=== PATIENT | male | born 1935 | race Caucasian/White ===

== ENCOUNTER 2016-12-08 16:53 | Emergency (ER) | payer MEDICARE, BC | END 2016-12-08 17:40 | disposition left against medical advice (07) | LOC: JP.ED 16:53 | DX: Z53.21 Procedure and treatment not carried out due to patient leaving prior to being seen by health care provider (principal) | CPT/HCPCS: 99281 ==

== ENCOUNTER 2018-11-11 07:30 | Day surgery (SDC) | payer MEDICARE, BC ==
[2018-11-11] MEDS ORDERED: Sodium Chloride 0.9% 10 ML Syringe FLUSH PRN (08:00)
[2018-11-11 09:37] VITALS: BP 148/66; PULSE 86
--- NOTE | 2018-11-11 11:58 | OR ---
DATE OF PROCEDURE: 11/11/2018 POSTOPERATIVE CARE: Postoperative care will be provided mainly at the [address] [place] [address] [facility] in conjunction with [facility]. PREOPERATIVE DIAGNOSIS: Cataract, right eye. POSTOPERATIVE DIAGNOSIS: Cataract, right eye. PROCEDURE: Phacoemulsification with intraocular lens placement, right eye. ANESTHESIA: Topical and intracameral. ESTIMATED BLOOD LOSS: Minimal. COMPLICATIONS: None. PATHOLOGY SPECIMENS: None. SURGICAL FINDINGS: None. INDICATION FOR PROCEDURE: The patient is an 83-year-old male with history of a visually significant cataract in the right eye, which interfered with activities of daily living. This consisted of a nuclear sclerosis cataract. Following careful discussion of the risks, benefits and alternatives to cataract extraction with intraocular lens placement including blindness and , the patient elected to proceed, and informed, written consent was obtained prior to the procedure. DESCRIPTION OF THE PROCEDURE: The patient was previously identified, and a payal placed above the right eye. All sources, including the patient, indicated that the right eye was the correct eye. The patient was subsequently taken to the operating room where standard monitors were applied. The patient was then prepped and draped in the usual sterile fashion for ophthalmic surgery. Attention was first directed at the 12 o'clock position where a paracentesis port was fashioned. Shugar solution followed by Viscoat was instilled into the eye. Attention was then directed to the 8:30 position where a triplanar incision was made in a near-clear manner using a keratome. A continuous capsulorrhexis was then made using a combination of the cystotome and Utrata forceps. Hydrodissection was achieved using a balanced salt solution, and the lens rotated nicely. Phacoemulsification was then done using a modified [id number] technique without complication. Phaco time was 10.21 CDE. The remaining cortex was removed using the irrigation/aspiration handpiece. Provisc was then instilled into the eye. A Technis lens, model [id number], at 22.5 diopters was then placed in the capsular bag using an Madeline injector. The remaining viscoelastic was removed using the irrigation/aspiration forceps. All wounds were then checked and found to be watertight. The lid speculum and drapes were removed. Maxitrol ointment was placed in the patient's right eye, and the eye was shielded. The patient tolerated the procedure well. The patient was instructed to follow up tomorrow. All needle and sponge counts were correct at the end of the procedure. There were no surgical findings. Ekta Rhodes MD /[id number]
== END 2018-11-11 10:02 | disposition home or self-care (01) ==
LOC: JP.SDS 07:30
PROVIDERS: ATTEND Ophthalmology
DX: E11.36 Type 2 diabetes mellitus with diabetic cataract (principal); H25.11 Age-related nuclear cataract, right eye; I10 Essential (primary) hypertension; I48.91 Unspecified atrial fibrillation; J44.9 Chronic obstructive pulmonary disease, unspecified; K21.9 Gastro-esophageal reflux disease without esophagitis; Z87.891 Personal history of nicotine dependence
CPT/HCPCS: 66984; V2632

== ENCOUNTER 2018-12-21 08:43 | Emergency (ER) | payer MEDICARE, BC ==
--- NOTE | 2018-12-21 09:34 | EDM.PDOC ---
ED HPI GENERAL MEDICAL PROBLEM - General Chief Complaint: Syncope Stated Complaint: FAINTED Time Seen by Provider: 12/21/18 09:23 Source of Information: Reports: Patient, Family, RN Notes Reviewed History Limitations: Reports: No Limitations - History of Present Illness INITIAL COMMENTS - FREE TEXT/NARRATIVE: 83-year-old gentleman presents emergency department today following a syncopal event. He states he was at home he had bent over to feed the cat suddenly felt lightheaded with some nausea got up to go to the sink he then awoke on the floor. This is unwitnessed event he is unsure what happened he was not disorientated when he awoke he complains of no pain does not believe he injured himself following this event - Related Data Allergies Allergy/AdvReac Type Severity Reaction Status Date / Time No Known Allergies Allergy Verified 12/21/18 09:05 Home Meds: Home Meds Potassium Chloride [Klor-Con 10] 10 meq PO DAILY 05/11/13 [History] Tamsulosin HCl [Flomax] 0.4 mg PO DAILY 05/11/13 [History] Finasteride [Proscar] 5 mg PO DAILY 10/04/14 [History] atorvaSTATin [Lipitor] 10 mg PO BEDTIME 10/04/14 [History] Acetaminophen [Mapap] 500 mg PO Q6H PRN 03/19/18 [History] Aspirin [Aspirin EC] 325 mg PO DAILY 03/19/18 [History] Metoprolol Tartrate 12.5 mg PO BID 03/19/18 [History] Nitroglycerin [Nitrostat] 0.4 mg SL ASDIRECTED PRN 03/19/18 [History] amLODIPine [Norvasc] 2.5 ng PO DAILY 03/19/18 [History] Albuterol Sulfate [Albuterol Sulfate Hfa] 1 - 2 puff IH Q4HR PRN 11/09/18 [ History] Albuterol [Proventil Neb Soln] 2.5 mg .XX Q6HR PRN 11/09/18 [History] Budesonide/Formoterol Fumarate [Symbicort 80-4.5 Mcg Inhaler] 2 puff IH BID 09/22 [History] Doxazosin Mesylate [Cardura] 2 mg PO DAILY 11/09/18 [History] Past Medical History HEENT History: Reports: Cataract, Impaired Vision, Macular Degeneration Cardiovascular History: Reports: Afib, High Cholesterol, Hypertension Respiratory History: Reports: COPD Gastrointestinal History: Reports: None Genitourinary History: Reports: BPH Other Genitourinary History: hx. hydro somthing Endocrine/Metabolic History: Reports: None Immunologic History: Reports: None Oncologic (Cancer) History: Reports: Lymphoma - Infectious Disease History Infectious Disease History: Reports: Chicken Pox, Measles, Shingles - Past Surgical History HEENT Surgical History: Reports: Adenoidectomy, Cataract Surgery, Tonsillectomy Cardiovascular Surgical History: Reports: None Respiratory Surgical History: Reports: None GI Surgical History: Reports: Appendectomy, Colonoscopy Other Male Surgeries/Procedures: repair of above Endocrine Surgical History: Reports: Thyroid Biopsy Other Endocrine Surgeries/Procedures: thyroid nodule Oncologic Surgical History: Reports: None Dermatological Surgical History: Reports: Skin Biopsy Social & Family History - Tobacco Use Smoking Status *Q: Former Smoker Used Tobacco, but Quit: Yes Month/Year Tobacco Last Used: 1987 Second Hand Smoke Exposure: No - Caffeine Use Caffeine Use: Reports: Coffee - Recreational Drug Use Recreational Drug Use: No ED ROS GENERAL - Review of Systems Review Of Systems: See Below Constitutional: Reports: No Symptoms HEENT: Reports: No Symptoms Respiratory: Reports: No Symptoms Cardiovascular: Reports: Syncope GI/Abdominal: Reports: Nausea Musculoskeletal: Reports: No Symptoms Skin: Reports: No Symptoms Neurological: Reports: No Symptoms ED EXAM, GENERAL - Physical Exam Exam: See Below Free Text/Narrative:: General: Male, not in any distress, alert and oriented x3 HEENT: head is a Band- Aid over a biopsy wound is appreciated on the forehead normocephalic, eyes pupils equal round reactive to light, sclera clear no conjunctivitis appreciated , extraocular eye movements intact. Ears tympanic membranes clear and william landmarks and light reflex are present bilaterally canals are clear. Nose no septal deviation, nares are clear, no blood present. Mouth mucosa is moist and pink no erythema or exudate noted in soft palate, tongue is midline uvula is midline, dentition is intact. Neck: Supple no thyromegaly no tracheal deviation. Nodes: Cervical nodes subclavicular nodes nontender no palpable lymphadenopathy noted. Lungs: clear to auscultation bilaterally with symmetrical respirations, no adventitious noise appreciated. CV: regular rate and rhythm S1 and S2 appreciated no murmurs rubs or gallops noted. Abdomen: Soft, nontender, no palpable masses or organomegaly appreciated, no distention no guarding bowel sounds are present, . Neuro: Cranial nerves II test with pupillary light reflex 4 mm to 2 mm bilaterally, CN III test pupillary constriction, limited elevation and eye abduction bilaterally, CN IV downward movement of eyes bilaterally, CN V good jaw movement, CN lateral deviation of the eyes bilaterally to finger movement , CN VII smile is asymmetrical however this is due to Botox injections on the left side, CN VIII pass finger rub to ears bilaterally, CN IX adequate voice and tone, CN X adequate voice and tone no difficulty swallowing, CN XI can shrug shoulders without difficulty, CN XII can stick tongue out without difficulty, cranial nerves II to XII intact as tested, power is 5 x 5 upper and lower extremities Skin: Warm and dry, intact Extremities: No lower extremity edema appreciated, . Course - Vital Signs Last Recorded V/S: Last Vital Signs Temp 97.1 F 12/21/18 09:07 Pulse 74 12/21/18 09:55 Resp 18 12/21/18 09:55 BP 171/79 H 12/21/18 09:55 Pulse Ox 94 L 12/21/18 09:55 - Orders/Labs/Meds Orders: Active Orders 24 hr Category Date Time Status EKG Documentation Completion [RC] ASDIRECTED Care 12/21/18 09:29 Active EKG 12 Lead [EK] Stat Ther 12/21/18 09:29 Ordered Labs: Laboratory Tests 12/21/18 12/21/18 12/21/18 Range/Units 09:31 09:38 09:38 WBC 5.4 (4.5-11.0) K/uL RBC 4.16 L (4.30-5.90) M/uL Hgb 13.1 (12.0-15.0) g/dL Hct 40.1 (40.0-54.0) % MCV 96 (80-98) fL MCH 32 H (27-31) pg MCHC 33 (32-36) % Plt Count 147 L (150-400) K/uL Neut % (Auto) 79 H (36-66) % Lymph % (Auto) 7 L (24-44) % [place] % (Auto) 13 H (2-6) % Eos % (Auto) 2 (2-4) % Baso % (Auto) 0 (0-1) % PT 10.6 (9.5-12.0) sec INR 0.98 (0.80-1.20) Sodium (140-148) mmol/L Potassium (3.6-5.2) mmol/L Chloride (100-108) mmol/L Carbon Dioxide (21-32) mmol/L Anion Gap (5.0-14.0) mmol/L BUN (7-18) mg/dL Creatinine (0.8-1.3) mg/dL Est Cr Clr Drug Dosing mL/min Estimated GFR (MDRD) (>60) Glucose (74-106) mg/dL Calcium (8.5-10.1) mg/dL Troponin I < 0.017 (0.000-0.056) ng/mL 12/21/18 Range/Units 09:38 WBC (4.5-11.0) K/uL RBC (4.30-5.90) M/uL Hgb (12.0-15.0) g/dL Hct (40.0-54.0) % MCV (80-98) fL MCH (27-31) pg MCHC (32-36) % Plt Count (150-400) K/uL Neut % (Auto) (36-66) % Lymph % (Auto) (24-44) % [place] % (Auto) (2-6) % Eos % (Auto) (2-4) % Baso % (Auto) (0-1) % PT (9.5-12.0) sec INR (0.80-1.20) Sodium 143 (140-148) mmol/L Potassium 3.6 (3.6-5.2) mmol/L Chloride 108 (100-108) mmol/L Carbon Dioxide 29 (21-32) mmol/L Anion Gap 6.4 (5.0-14.0) mmol/L BUN 16 (7-18) mg/dL Creatinine 0.9 (0.8-1.3) mg/dL Est Cr Clr Drug Dosing 58.14 mL/min Estimated GFR (MDRD) > 60 (>60) Glucose 101 (74-106) mg/dL Calcium 8.3 L (8.5-10.1) mg/dL Troponin I (0.000-0.056) ng/mL Departure - Departure Time of Disposition: 10:23 Disposition: Home, Self-Care 01 Condition: Fair Clinical Impression: Syncope and collapse Instructions: Syncope, [id number] Referrals: Serafin Lozoya MD [Primary Care Provider] - Forms: ED Department Discharge Additional Instructions: Continue with regular medications, Please followup with your primary care provider in 3-5 days if not better, please call return to the emergency department with worsening of symptoms. - My Orders Last 24 Hours: My Active Orders 12/21/18 09:29 EKG Documentation Completion [RC] ASDIRECTED EKG 12 Lead [EK] Stat - Assessment/Plan Last 24 Hours: My Active Orders 12/21/18 09:29 EKG Documentation Completion [RC] ASDIRECTED EKG 12 Lead [EK] Stat Plan: Assessment Acuity = acute Site and laterality = syncopal event Etiology = unclear etiology Manifestations = none Location of injury = Home Lab values = CBC, CMP unremarkable troponin was negative EKG demonstrates sinus rhythm similar to prior EKGs in the past Plan He remained a symptomatically while in the ED have him resume his regular medications follow-up primary care in 3-5 days for reevaluation This note was dictated using [employer] voice recognition software please call with any questions on syntax or grammar.
[2018-12-21 10:22] VITALS: BP 171/79; PULSE 74
== END 2018-12-21 10:40 | disposition home or self-care (01) ==
LOC: JP.ED 08:43
DX: R55 Syncope and collapse (principal); I10 Essential (primary) hypertension; I48.91 Unspecified atrial fibrillation; E78.00 Pure hypercholesterolemia, unspecified; J44.9 Chronic obstructive pulmonary disease, unspecified; Z87.891 Personal history of nicotine dependence; Z90.49 Acquired absence of other specified parts of digestive tract; Z79.82 Long term (current) use of aspirin; Z79.899 Other long term (current) drug therapy
CPT/HCPCS: 36415; 80048; 84484; 85025; 85610; 93005; 99284-25

== ENCOUNTER 2019-03-10 04:48 | Emergency (ER) | payer MEDICARE, BC ==
--- NOTE | 2019-03-10 04:56 | EDM.PDOC ---
<Kristine Chavarria - Last Filed: 03/10/19 06:47> ED HPI GENERAL MEDICAL PROBLEM - General Chief Complaint: Cardiovascular Problem Stated Complaint: MEDICAL [facility] Time Seen by Provider: 03/10/19 04:52 Source of Information: Reports: Patient, EMS History Limitations: Reports: No Limitations - History of Present Illness INITIAL COMMENTS - FREE TEXT/NARRATIVE: pt woke up and felt like the entire room was spinning. He did not have a headache or he did not vomit. 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 Pt has a history of inner ear a number of years ago. Duration: Hour(s): Location: Reports: Generalized Associated Symptoms: Reports: Weakness - Related Data Allergies Allergy/AdvReac Type Severity Reaction Status Date / Time No Known Allergies Allergy Verified 03/10/19 04:50 Home Meds: Home Meds Finasteride [Proscar] 5 mg PO DAILY 10/04/14 [History] Acetaminophen [Mapap] 500 mg PO Q6H PRN 03/19/18 [History] Aspirin [Aspirin EC] 325 mg PO DAILY 03/19/18 [History] Metoprolol Tartrate 25 mg PO BID 03/19/18 [History] Nitroglycerin [Nitrostat] 0.4 mg SL ASDIRECTED PRN 03/19/18 [History] amLODIPine [Norvasc] 2.5 mg PO DAILY 03/19/18 [History] Albuterol Sulfate [Albuterol Sulfate Hfa] 1 - 2 puff IH Q4HR PRN 11/09/18 [ History] Albuterol [Proventil Neb Soln] 2.5 mg .XX Q6HR PRN 11/09/18 [History] Budesonide/Formoterol Fumarate [Symbicort 80-4.5 Mcg Inhaler] 2 puff IH BID 09/22 [History] Doxazosin Mesylate [Cardura] 2 mg PO DAILY 11/09/18 [History] Omeprazole 1 cap PO ACBREAKFAST 03/10/19 [History] Potassium Chloride [Klor-Con 10] 10 meq PO DAILY 03/10/19 [History] Past Medical History HEENT History: Reports: Cataract, Impaired Vision, Macular Degeneration Cardiovascular History: Reports: Afib, High Cholesterol, Hypertension Respiratory History: Reports: COPD Gastrointestinal History: Reports: None Genitourinary History: Reports: BPH Other Genitourinary History: hx. hydro somthing Endocrine/Metabolic History: Reports: None Immunologic History: Reports: None Oncologic (Cancer) History: Reports: Lymphoma - Infectious Disease History Infectious Disease History: Reports: Chicken Pox, Measles, Shingles - Past Surgical History HEENT Surgical History: Reports: Adenoidectomy, Cataract Surgery, Tonsillectomy Cardiovascular Surgical History: Reports: None Respiratory Surgical History: Reports: None GI Surgical History: Reports: Appendectomy, Colonoscopy Other Male Surgeries/Procedures: repair of above Endocrine Surgical History: Reports: Thyroid Biopsy Other Endocrine Surgeries/Procedures: thyroid nodule Oncologic Surgical History: Reports: None Dermatological Surgical History: Reports: Skin Biopsy Social & Family History - Caffeine Use Caffeine Use: Reports: Coffee ED ROS GENERAL - Review of Systems Review Of Systems: See Below Constitutional: Denies: Other (pt woke up and felt like the room was spinning / He went to the br and he bearly made it back to bed. ) HEENT: Reports: No Symptoms Respiratory: Reports: No Symptoms Cardiovascular: Reports: No Symptoms Endocrine: Reports: No Symptoms GI/Abdominal: Reports: No Symptoms, Nausea : Reports: No Symptoms Musculoskeletal: Reports: No Symptoms Skin: Reports: No Symptoms ED EXAM, GENERAL - Physical Exam Exam: See Below Free Text/Narrative:: pt woke up with a episode of marked vertigo. He was bearly able to get back to bed. He was nauseted but he did not vomit. He has had this in the past. Exam Limited By: No Limitations General Appearance: Alert, No Apparent Distress, Anxious, Other (p is still very off balance when he moves his head. pupils are equal and reactive. ) Ears: Normal TMs Nose: Normal Inspection Throat/Mouth: Normal Inspection Head: Atraumatic Neck: Normal Inspection Respiratory/Chest: No Respiratory Distress Cardiovascular: Regular Rate, Rhythm GI/Abdominal: Soft, Non-Tender (Male) Exam: Deferred Rectal (Males) Exam: Deferred Back Exam: Normal Inspection Extremities: Normal Inspection Neurological: Alert, Oriented, Normal Cognition Psychiatric: Anxious Course - Vital Signs Last Recorded V/S: Last Vital Signs Temp 97.8 F 03/10/19 04:48 Pulse 77 03/10/19 04:48 Resp 12 03/10/19 04:48 BP 163/74 H 03/10/19 04:48 Pulse Ox 98 03/10/19 04:48 - Orders/Labs/Meds Orders: Active Orders 24 hr Category Date Time Status EKG Documentation Completion [RC] ASDIRECTED Care 03/10/19 04:51 Active EKG 12 Lead [EK] Routine Ther 03/10/19 04:51 Ordered Labs: Laboratory Tests 03/10/19 03/10/19 03/10/19 Range/Units 05:00 05:00 05:00 WBC 5.0 (4.5-11.0) K/uL RBC 4.15 L (4.30-5.90) M/uL Hgb 13.1 (12.0-15.0) g/dL Hct 40.1 (40.0-54.0) % MCV 97 (80-98) fL MCH 32 H (27-31) pg MCHC 33 (32-36) % Plt Count 149 L (150-400) K/uL Neut % (Auto) 69 H (36-66) % Lymph % (Auto) 6 L (24-44) % [place] % (Auto) 19 H (2-6) % Eos % (Auto) 6 H (2-4) % Baso % (Auto) 0 (0-1) % Sodium 142 (140-148) mmol/L Potassium 3.6 (3.6-5.2) mmol/L Chloride 106 (100-108) mmol/L Carbon Dioxide 28 (21-32) mmol/L Anion Gap 8.4 (5.0-14.0) mmol/L BUN 13 (7-18) mg/dL Creatinine 1.0 (0.8-1.3) mg/dL Est Cr Clr Drug Dosing 49.62 mL/min Estimated GFR (MDRD) > 60 (>60) Glucose 108 H (74-106) mg/dL Calcium 8.2 L (8.5-10.1) mg/dL Total Bilirubin 0.4 (0.2-1.0) mg/dL AST 15 (15-37) U/L ALT 19 (12-78) U/L Alkaline Phosphatase 117 H (46-116) U/L Troponin I < 0.017 (0.000-0.056) ng/mL Total Protein 6.4 (6.4-8.2) g/dL Albumin 3.3 L (3.4-5.0) g/dL Globulin 3.1 (2.3-3.5) g/dL Albumin/Globulin Ratio 1.1 L (1.2-2.2) Urine Color (YELLOW) Urine Appearance (CLEAR) Urine pH (5.0-8.0) Ur Specific [place] (1.008-1.030) Urine Protein (NEGATIVE) mg/dL Urine Glucose (UA) (NEGATIVE) mg/dL Urine Ketones (NEGATIVE) mg/dL Urine Occult Blood (NEGATIVE) Urine Nitrite (NEGATIVE) Urine Bilirubin (NEGATIVE) Urine Urobilinogen (0.2-1.0) EU/dL Ur Leukocyte Esterase (NEGATIVE) Urine RBC (0-5) Urine WBC (0-5) Ur Epithelial Cells Amorphous Sediment Urine Bacteria Urine Mucus 03/10/19 Range/Units 06:20 WBC (4.5-11.0) K/uL RBC (4.30-5.90) M/uL Hgb (12.0-15.0) g/dL Hct (40.0-54.0) % MCV (80-98) fL MCH (27-31) pg MCHC (32-36) % Plt Count (150-400) K/uL Neut % (Auto) (36-66) % Lymph % (Auto) (24-44) % [place] % (Auto) (2-6) % Eos % (Auto) (2-4) % Baso % (Auto) (0-1) % Sodium (140-148) mmol/L Potassium (3.6-5.2) mmol/L Chloride (100-108) mmol/L Carbon Dioxide (21-32) mmol/L Anion Gap (5.0-14.0) mmol/L BUN (7-18) mg/dL Creatinine (0.8-1.3) mg/dL Est Cr Clr Drug Dosing mL/min Estimated GFR (MDRD) (>60) Glucose (74-106) mg/dL Calcium (8.5-10.1) mg/dL Total Bilirubin (0.2-1.0) mg/dL AST (15-37) U/L ALT (12-78) U/L Alkaline Phosphatase (46-116) U/L Troponin I (0.000-0.056) ng/mL Total Protein (6.4-8.2) g/dL Albumin (3.4-5.0) g/dL Globulin (2.3-3.5) g/dL Albumin/Globulin Ratio (1.2-2.2) Urine Color Yellow (YELLOW) Urine Appearance Clear (CLEAR) Urine pH 7.0 (5.0-8.0) Ur Specific [place] 1.020 (1.008-1.030) Urine Protein Negative (NEGATIVE) mg/dL Urine Glucose (UA) Negative (NEGATIVE) mg/dL Urine Ketones Negative (NEGATIVE) mg/dL Urine Occult Blood Negative (NEGATIVE) Urine Nitrite Negative (NEGATIVE) Urine Bilirubin Negative (NEGATIVE) Urine Urobilinogen 0.2 (0.2-1.0) EU/dL Ur Leukocyte Esterase Negative (NEGATIVE) Urine RBC 0-5 (0-5) Urine WBC 0-5 (0-5) Ur Epithelial Cells Rare Amorphous Sediment Not seen Urine Bacteria Not seen Urine Mucus Not seen Meds: Medications Discontinued Medications Generic Name Dose Route Start Last Admin Trade Name Freq PRN Reason Stop Dose Admin Sodium Chloride 1,000 mls @ 400 mls/hr 03/10/19 05:15 03/10/19 05:39 Normal Saline IV 400 mls/hr ASDIRECTED RORO Administration Meclizine HCl 25 mg 03/10/19 05:11 03/10/19 05:21 Antivert PO 03/10/19 05:12 25 mg ONETIME ONE Administration Meclizine HCl 25 mg 03/10/19 06:51 03/10/19 06:58 Antivert PO 03/10/19 06:52 25 mg ONETIME ONE Administration Ondansetron HCl 4 mg 03/10/19 05:11 03/10/19 05:21 Zofran IVPUSH 03/10/19 05:12 4 mg ONETIME ONE Administration - Re-Assessments/Exams Free Text/Narrative Re-Assessment/Exam: 03/10/19 06:47 pt had a cat scan which did not show acute findings. His lab work was normal. Pt persists in being dizzy. Departure - Departure Disposition: Home, Self-Care 01 Clinical Impression: Vertigo, Nausea alone Instructions: Vertigo, [id number] Referrals: PCP,None [Primary Care Provider] - Forms: ED Department Discharge Care Plan Goals: Stay hydrated, continue any current medications and increase activity as tolerated. Return anytime if worsening or concerns. <Teddy Myers - Last Filed: 03/10/19 11:01> Course - Re-Assessments/Exams Free Text/Narrative Re-Assessment/Exam: 03/10/19 07:17 Patient care turned over from Dr. Chavarria pending his response to fluids and meclizine. He was able to get up and use the bathroom without assistance. He feels much better and would like to try to go home. A family member will stay with him this morning, he will return if worsening. Departure - Departure Time of Disposition: 07:22
[2019-03-10 04:59] VITALS: BP 163/74; PULSE 77
[2019-03-10] MEDS ORDERED: Ondansetron 4 MG/2 ML SDV IVPUSH ONE (05:11)
[2019-03-10] MEDS ORDERED: Meclizine 25 MG Tab PO ONE ×2 (05:11→06:51)
[2019-03-10] MEDS ORDERED: Sodium Chloride 0.9% 1,000 ML IV SCH (05:15)
--- NOTE | 2019-03-10 06:06 | CRLCT ---
INDICATION: Vertigo TECHNIQUE: Head CT without contrast. COMPARISON: December 24, 2018 FINDINGS: CSF spaces: Within normal limits for age. Brain parenchyma: There are nonspecific low attenuation white matter changes consistent with chronic microvascular disease. No sign of mass, hemorrhage, or midline shift. Skull base and calvarium: The visualized paranasal sinuses and mastoid air cells demonstrate no acute or significant findings. The visualized orbits are grossly unremarkable. No skull fractures. There is intracranial atherosclerosis. IMPRESSION: 1. No acute findings. 2. Nonspecific white matter disease, typical of chronic microvascular disease. Please note that all CT scans at this facility use dose modulation, iterative reconstruction, and/or weight-based dosing when appropriate to reduce radiation dose to as low as reasonably achievable. Dictated by Rhona Gomez MD @ Mar 10 2019 6:03AM Signed by Dr. Rhona Gomez @ Mar 10 2019 6:04AM
== END 2019-03-10 07:29 | disposition home or self-care (01) ==
LOC: JP.ED 04:48
DX: R42 Dizziness and giddiness (principal); R11.0 Nausea; I10 Essential (primary) hypertension; I48.91 Unspecified atrial fibrillation; J44.9 Chronic obstructive pulmonary disease, unspecified; N40.1 Benign prostatic hyperplasia with lower urinary tract symptoms; Z79.82 Long term (current) use of aspirin; Z79.899 Other long term (current) drug therapy
CPT/HCPCS: 36415; 70450; 80053; 81001; 84484; 85025; 93005; 96361; 96374; 99284; A9270; J2405; J7030; 93010

== ENCOUNTER 2020-06-07 13:56 | Emergency (ER) | payer MEDICARE, BC ==
[2020-06-07] MEDS ORDERED: Sodium Chloride 0.9% 10 ML Syringe FLUSH PRN (14:00)
--- NOTE | 2020-06-07 14:07 | EDM.PDOC ---
ED HPI GENERAL MEDICAL PROBLEM - General Stated Complaint: MEDICAL VIA [facility]TH Time Seen by Provider: 06/07/20 14:00 Source of Information: Reports: Patient, Family, RN Notes Reviewed History Limitations: Reports: No Limitations - History of Present Illness INITIAL COMMENTS - FREE TEXT/NARRATIVE: 85-year-old gentleman presents emergency department a complaint of chest pain, he arrives by EMS services he does have a no known history of coronary artery disease however no stenting. He states he was out today sudden onset of chest pain did take 2 nitros did not relieve the pain EMS services were called. He was provided aspirin and additional dose of nitro he is chest pain-free at this time. denies Pain Score (Numeric/FACES): 0 - Related Data Allergies Allergy/AdvReac Type Severity Reaction Status Date / Time No Known Allergies Allergy Verified 06/07/20 14:16 Home Meds: Home Meds Finasteride [Proscar] 5 mg PO DAILY 10/04/14 [History] Acetaminophen [Mapap] 500 mg PO Q6H PRN 03/19/18 [History] Aspirin [Aspirin EC] 325 mg PO DAILY 03/19/18 [History] Metoprolol Tartrate 25 mg PO BID 03/19/18 [History] Nitroglycerin [Nitrostat] 0.4 mg SL ASDIRECTED PRN 03/19/18 [History] amLODIPine [Norvasc] 2.5 mg PO DAILY 03/19/18 [History] Albuterol Sulfate [Albuterol Sulfate Hfa] 1 - 2 puff IH Q4HR PRN 11/09/18 [History] Albuterol [Proventil Neb Soln] 2.5 mg .XX Q6HR PRN 11/09/18 [History] Budesonide/Formoterol Fumarate [Symbicort 80-4.5 Mcg Inhaler] 2 puff IH BID 11/09/18 [History] Doxazosin Mesylate [Cardura] 2 mg PO DAILY 11/09/18 [History] Omeprazole 1 cap PO ACBREAKFAST 03/10/19 [History] Potassium Chloride [Klor-Con 10] 10 meq PO DAILY 03/10/19 [History] Past Medical History HEENT History: Reports: Cataract, Impaired Vision, Macular Degeneration Cardiovascular History: Reports: Afib, High Cholesterol, Hypertension Respiratory History: Reports: COPD Gastrointestinal History: Reports: None Genitourinary History: Reports: BPH Other Genitourinary History: hx. hydro somthing Neurological History: Reports: Frequent Repetitive Habits (TICS), Other (See Below) Other Neuro History: mild cognitive impairment. anosmia Endocrine/Metabolic History: Reports: None Other Endocrine/Metabolic History: prediabetic Immunologic History: Reports: None Oncologic (Cancer) History: Reports: Lymphoma - Infectious Disease History Infectious Disease History: Reports: Chicken Pox, Measles, Shingles - Past Surgical History HEENT Surgical History: Reports: Adenoidectomy, Cataract Surgery, Tonsillectomy Cardiovascular Surgical History: Reports: None Respiratory Surgical History: Reports: None GI Surgical History: Reports: Appendectomy, Colonoscopy Other Male Surgeries/Procedures: repair of above Endocrine Surgical History: Reports: Thyroid Biopsy Other Endocrine Surgeries/Procedures: thyroid nodule Oncologic Surgical History: Reports: None Dermatological Surgical History: Reports: Skin Biopsy Social & Family History - Caffeine Use Caffeine Use: Reports: Coffee ED ROS GENERAL - Review of Systems Review Of Systems: See Below Constitutional: Reports: No Symptoms HEENT: Reports: No Symptoms Respiratory: Reports: No Symptoms Cardiovascular: Reports: Chest Pain GI/Abdominal: Reports: No Symptoms ED EXAM, GENERAL - Physical Exam Exam: See Below Exam Limited By: No Limitations General Appearance: Alert, WD/WN, No Apparent Distress Respiratory/Chest: No Respiratory Distress, Lungs Clear, Normal Breath Sounds, No Accessory Muscle Use, Chest Non-Tender Cardiovascular: Regular Rate, Rhythm, No Murmur GI/Abdominal: Soft, Non-Tender #1 Interpretation EKG Date: 06/07/20 Rhythm: NSR [place]: LAD-Left [place] Deviation P-Wave: Present QRS: Normal ST-T: Normal QT: Normal Comparison: No Change Course - Vital Signs Last Recorded V/S: Last Vital Signs Temp 97.4 F 06/07/20 14:15 Pulse 66 06/07/20 14:15 Resp 17 06/07/20 14:15 BP 143/76 H 06/07/20 14:15 Pulse Ox 95 06/07/20 14:15 - Orders/Labs/Meds Orders: Active Orders 24 hr Category Date Time Status Cardiac Monitoring [RC] .As Directed Care 06/07/20 14:00 Active EKG Documentation Completion [RC] ASDIRECTED Care 06/07/20 14:00 Active Peripheral IV Care [RC] . DIRECTED Care 06/07/20 14:00 Active Sodium Chloride 0.9% [Saline Flush] Med 06/07/20 14:00 Active 10 ml FLUSH ASDIRECTED PRN Peripheral IV Insertion Adult [OM.PC] Stat Oth 06/07/20 14:00 Ordered Saline Lock Insert [OM.PC] Stat Oth 06/07/20 14:00 Ordered EKG 12 Lead [EK] Stat Ther 06/07/20 14:00 Ordered Medication Orders Sodium Chloride (Saline Flush) 10 ml FLUSH ASDIRECTED PRN PRN Reason: Keep Vein Open Labs: Laboratory Tests 06/07/20 06/07/20 06/07/20 Range/Units 14:00 14:00 16:30 WBC 6.5 (4.5-11.0) K/uL RBC 4.21 L (4.30-5.90) M/uL Hgb 13.3 (12.0-15.0) g/dL Hct 40.4 (40.0-54.0) % MCV 96 (80-98) fL MCH 32 H (27-31) pg MCHC 33 (32-36) % Plt Count 182 (150-400) K/uL Neut % (Auto) 75 H (36-66) % Lymph % (Auto) 10 L (24-44) % [place] % (Auto) 12 H (2-6) % Eos % (Auto) 2 (2-4) % Baso % (Auto) 0 (0-1) % Sodium 144 (140-148) mmol/L Potassium 4.1 (3.6-5.2) mmol/L Chloride 107 (100-108) mmol/L Carbon Dioxide 27 (21-32) mmol/L Anion Gap 10.4 (5.0-14.0) mmol/L BUN 21 H D (7-18) mg/dL Creatinine 1.1 (0.8-1.3) mg/dL Est Cr Clr Drug Dosing 44.31 mL/min Estimated GFR (MDRD) > 60 (>60) Glucose 108 H (74-106) mg/dL Calcium 8.5 (8.5-10.1) mg/dL Total Bilirubin 0.3 (0.2-1.0) mg/dL AST 14 L (15-37) U/L ALT 20 (12-78) U/L Alkaline Phosphatase 93 (46-116) U/L Troponin I < 0.017 < 0.017 (0.000-0.056) ng/mL Total Protein 6.1 L (6.4-8.2) g/dL Albumin 3.3 L (3.4-5.0) g/dL Globulin 2.8 (2.3-3.5) g/dL Albumin/Globulin Ratio 1.2 (1.2-2.2) Meds: Medications Generic Name Dose Route Start Last Admin Trade Name Freq PRN Reason Stop Dose Admin Sodium Chloride 10 ml 06/07/20 14:00 Saline Flush FLUSH ASDIRECTED PRN Keep Vein Open Departure - Departure Time of Disposition: 18:06 Disposition: Home, Self-Care 01 Condition: Poor 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 Instructions: Nonspecific Chest Pain, Adult, [id number] Referrals: PCP,None [Primary Care Provider] - Additional Instructions: Please follow-up with your primary care provider for further evaluation, call return to the emergency department worsening of symptoms Sepsis Event Note (ED) - Focused Exam Vital Signs: Vital Signs Temp Pulse Resp BP Pulse Ox 06/07/20 14:15 97.4 F 66 17 143/76 H 95 06/07/20 14:13 97.4 F 66 17 143/76 H 95 - My Orders Last 24 Hours: My Active Orders 06/07/20 14:00 Cardiac Monitoring [RC] .As Directed EKG Documentation Completion [RC] ASDIRECTED Peripheral IV Care [RC] . DIRECTED Sodium Chloride 0.9% [Saline Flush] 10 ml FLUSH ASDIRECTED PRN Peripheral IV Insertion Adult [OM.PC] Stat Saline Lock Insert [OM.PC] Stat EKG 12 Lead [EK] Stat - Assessment/Plan Last 24 Hours: My Active Orders 06/07/20 14:00 Cardiac Monitoring [RC] .As Directed EKG Documentation Completion [RC] ASDIRECTED Peripheral IV Care [RC] . DIRECTED Sodium Chloride 0.9% [Saline Flush] 10 ml FLUSH ASDIRECTED PRN Peripheral IV Insertion Adult [OM.PC] Stat Saline Lock Insert [OM.PC] Stat EKG 12 Lead [EK] Stat Plan: Assessment Acuity = acute Site and laterality = chest pain atypical however newly diagnosed bronchogenic carcinoma left lung Etiology = unknown Manifestations = none Location of injury = Home Lab values = CBC CMP unremarkable CT scan describes the bronchogenic carcinoma above, EKG demonstrates no ST elevations or depressions left bundle branch block troponin was negative x2 Plan I did review lab work CT scan results with him there can follow-up with your primary care for further evaluation and referral for biopsy possibly bronchoscopy can perform this. This note was dictated using [employer] voice recognition software please call with any questions on syntax or grammar.
--- NOTE | 2020-06-07 15:46 | CR ---
CHEST: Portable 06/07/2020 at 2:28 PM CLINICAL HISTORY:Chest pain COMPARISON:August 2018 FINDINGS: Heart size and pulmonary vascularity are normal. There is an ill-defined nodular density measuring approximately 1.6 x 2.8 cm and the left upper lobe. This is partially obscured by an EKG lead. No effusion is seen IMPRESSION: Ill-defined nodular density in the left upper lobe. This could represent a small infiltrate. Underlying neoplasm is not excluded. CT chest recommended
--- NOTE | 2020-06-07 16:50 | CRLCT ---
INDICATION: Lung nodule COMPARISON: A chest radiograph from June 07, 2020 TECHNIQUE: : CT examination of the chest was performed without contrast. Thin axial sections were obtained from above the apices of the lungs to the lung bases. Please note that all CT scans at this facility use dose modulation, iterative reconstruction, and/or weight-based dosing when appropriate to reduce radiation dose to as low as reasonably achievable. FINDINGS: : HEART and MEDIASTINUM: Heart size normal. Atherosclerotic vascular calcifications. No mediastinal or hilar adenopathy or mass. No pericardial effusion LUNGS: Upper lobe predominant emphysema, moderate. This is centrilobular and paraseptal. Spiculated left upper lobe mass anteriorly measuring 1.5 x 2.1 by 2.5 centimeters. This is likely to be a primary bronchogenic carcinoma. An inflammatory process is conceivable. Appropriate consultation advised for further evaluation. There are a few linear and fibrotic opacities identified especially at the bases. There are few areas of bronchiectasis associated with scarring. An additional nodules noted in the right upper lobe on image number 28 measuring 3 millimeters which could be malignant or inflammatory or fibrotic. PLEURAL SPACES: There is no pleural effusion, pneumothorax or pleural based mass. VISUALIZED UPPER ABDOMEN: Benign-appearing hepatic lesion, probably a small cyst. The adrenal glands are normal in size. The upper abdomen as visualized is otherwise unremarkable. OSSEOUS STRUCTURES: Age-appropriate appearance. No acute fracture or destructive process. TUBES and LINES: None. IMPRESSION: 1. Spiculated left upper lobe mass measuring 1.5 x 2.1 x 2.5 centimeters likely to be a primary bronchogenic carcinoma. There is a 3 millimeter nodule in the right upper lobe which could be inflammatory, fibrotic or malignant. 2. Upper lobe predominant emphysema, moderate, centrilobular and paraseptal combined. There also findings of mild interstitial fibrosis primarily involving the bases. 3. No adenopathy or pleural fluid. No significant upper abdominal findings are significant osseous findings. 4. Discussed with Officer at 4:45 p.m. on June 07, [address] scans at this facility use dose modulation, iterative reconstruction, and/or weight-based dosing when appropriate to reduce radiation dose to as low as reasonably achievable. Dictated by Beka Saba MD @ Jun 07 2020 4:36PM Signed by Dr. Beka Saba @ Jun 07 2020 4:48PM
[2020-06-07 18:28] VITALS: BP 181/95; PULSE 75
== END 2020-06-07 18:36 | disposition home or self-care (01) ==
LOC: JP.ED 13:56
DX: C34.02 Malignant neoplasm of left main bronchus (principal); I48.91 Unspecified atrial fibrillation; E78.00 Pure hypercholesterolemia, unspecified; I10 Essential (primary) hypertension; J44.9 Chronic obstructive pulmonary disease, unspecified; N40.0 Benign prostatic hyperplasia without lower urinary tract symptoms; Z79.82 Long term (current) use of aspirin; Z79.899 Other long term (current) drug therapy
CPT/HCPCS: 36415; 71045; 71045-26; 71250; 80053; 84484; 85025; 93005; 99284; 99285-25

== ENCOUNTER 2020-06-12 06:20 | Day surgery (SDC) | payer MEDICARE, BC ==
[~2020-06-12 06:20] MED LIST: Acetaminophen 500 MG Tab PO ONE; Dextrose 5%-Lactated Ringers 1,000 ML IV SCH
[2020-06-12] MEDS ORDERED: Lidocaine 4% Top Soln 50 ML Bottle ONE (06:33)
[2020-06-12] MEDS ORDERED: Lidocaine 2% Viscous Solution 15 ML Cup ONE (06:33)
[2020-06-12] MEDS ORDERED: Dextrose 5%-Lactated Ringers 1,000 ML IV SCH (07:00)
[2020-06-12] MEDS ORDERED: cefOXitin 2 GM in Sodium Chloride 0.9% 50 ML IV ONE (07:15)
[2020-06-12] MEDS ORDERED: fentaNYL 100 MCG/2 ML SDV ONE (07:17)
[2020-06-12] MEDS ORDERED: Propofol 200 MG/20 ML SDV ONE (07:17)
[2020-06-12] MEDS ORDERED: Lidocaine 4% Top Soln LTA 4 ML Syringe Kit ONE (07:17)
[2020-06-12] MEDS ORDERED: Albuterol/Ipratropium 3.0-0.5 MG/3 ML Neb Soln NEB ONE (07:30)
[2020-06-12 10:33] VITALS: BP 145/71; PULSE 69
--- NOTE | 2020-06-18 14:19 | OR ---
DATE OF PROCEDURE: 06/12/2020 SURGEON: Beka Matos MD PREOPERATIVE DIAGNOSIS: Left upper lobe mass. POSTOPERATIVE DIAGNOSIS: Left upper lobe mass. OPERATIVE PROCEDURES: Flexible bronchoscopy with: 1. Tracheobronchial washings (07244). 2. Bronchoalveolar lavage to left upper lobe (97930). 3. Brushings x2 to left upper lobe (61217). ANESTHESIA: Topical plus IV sedation. INDICATION FOR PROCEDURE: An 85-year-old male presenting with some recent onset of some chest discomfort. Workup included a chest x-ray and CT scan, which shows a mass in the left upper lobe, which is highly suggestive of being malignant. The plan is to proceed with flexible bronchoscopy with brushings and washings as indicated. Potential risks of the procedure including bleeding, aspiration of gastric contents, and such were reviewed, and the patient wishes to proceed. DETAILS OF PROCEDURE: The patient was taken to the operating room and placed in a supine position. IV sedation was administered after which the nasal passages and pharynx were anesthetized with topical lidocaine solution and translaryngeal injection of lidocaine placed per Anesthesia. Flexible bronchoscope was passed into the right side of the nose. Visualized nasopharynx and hypopharynx were unremarkable. Cord motion was symmetrical and normal. Within the trachea, there was just generalized scant amount of slightly mucoid secretions. There were no areas of obvious mass effect seen. The right tracheobronchial tree was entirely normal as was the left tracheobronchial tree. At this point, diffuse tracheobronchial washings were obtained. At this point, the bronchoscope was wedged into the area of the left upper lobe. The mass itself appeared to be located in the apical posterior segment, but the bronchoscope essentially included both segments of the left upper lobe. 200 mL of saline was injected, and then 3 containers of the return was collected and sent for microbiologic and cytologic evaluation. The return was fairly clear. Following this, brushes were placed into the apical posterior segment x2, and the procedure was then concluded. The patient was taken to the recovery room in satisfactory condition. The lesion in this case by x-ray criteria is almost certainly malignant. Plan will be to proceed with a PET scan. The decision making from this point forward will be as follows. If the PET scan shows uptake outside of the lung nodule itself, we will proceed with Medical Oncology consultation if today's exam is positive for histologic diagnosis. If it is negative, then we would proceed with a CT-guided needle biopsy of the lesion. If today's examination is otherwise nondiagnostic but PET scan shows only uptake in the mass, the next step would likely be resection of this pending pulmonary function tests and other preoperative clearance. Beka Matos MD /[id number]
== END 2020-06-12 10:58 | disposition home or self-care (01) ==
LOC: JP.SDS 06:20
PROVIDERS: ATTEND Surgery
DX: R91.8 Other nonspecific abnormal finding of lung field (principal); J44.9 Chronic obstructive pulmonary disease, unspecified; I10 Essential (primary) hypertension; I48.91 Unspecified atrial fibrillation
CPT/HCPCS: 87015; 87070; 87102; 87116; 87205; 87206; 87220; 88112; 88305; 94640; A9270-GY; J2704; J3010; J7121; J7620-GY

== ENCOUNTER 2020-07-12 03:31 | Emergency (ER) | payer MEDICARE, BC ==
--- NOTE | 2020-07-12 03:49 | EDM.PDOC ---
ED HPI GENERAL MEDICAL PROBLEM - General Chief Complaint: Lower Extremity Injury/Pain Stated Complaint: MEDICAL VIA [facility]TH Time Seen by Provider: 07/12/20 03:37 Source of Information: Reports: Patient, EMS History Limitations: Reports: No Limitations - History of Present Illness INITIAL COMMENTS - FREE TEXT/NARRATIVE: Patient was seen at [facility] where he underwent a right chest biopsy for a lung lesion. Patient has a history of bronchogenic carcinoma involving the left lung. He was in his usual state of health until around 2 AM this morning when he awoke with severe left lower leg pain and swelling on the lateral aspect of the leg just above the ankle. He denies any injury, however, he has significant swelling and bruising and exquisite tenderness over this area. He has good distal pulses in the posterior tibial and dorsalis pedis bilaterally. He has a history of atrial fibrillation but is not on any blood thinners besides aspirin. EMS reportedly gave the patient 100 micrograms of fentanyl IV in route to the hospital. Patient presents to the hospital with concerns of deep venous thrombosis. Left Lower Leg Pain Score (Numeric/FACES): 9 - Related Data Allergies Allergy/AdvReac Type Severity Reaction Status Date / Time No Known Allergies Allergy Verified 07/12/20 03:50 Home Meds: Home Meds Acetaminophen [Mapap] 500 mg PO Q6H PRN 03/19/18 [History] Aspirin [Aspirin EC] 325 mg PO DAILY 03/19/18 [History] Metoprolol Tartrate 25 mg PO BID 03/19/18 [History] Nitroglycerin [Nitrostat] 0.4 mg SL ASDIRECTED PRN 03/19/18 [History] Budesonide/Formoterol Fumarate [Symbicort 80-4.5 Mcg Inhaler] 2 puff IH BID 11/09/18 [History] Doxazosin Mesylate [Cardura] 2 mg PO DAILY 11/09/18 [History] Omeprazole 40 cap PO DAILY 03/10/19 [History] Past Medical History HEENT History: Reports: Cataract, Impaired Vision, Macular Degeneration Cardiovascular History: Reports: Afib, High Cholesterol, Hypertension Respiratory History: Reports: COPD Gastrointestinal History: Reports: None Genitourinary History: Reports: BPH Other Genitourinary History: hx. hydro somthing Neurological History: Reports: Frequent Repetitive Habits (TICS), Other (See Below) Other Neuro History: mild cognitive impairment. anosmia Endocrine/Metabolic History: Reports: None Other Endocrine/Metabolic History: prediabetic Immunologic History: Reports: None Oncologic (Cancer) History: Reports: Lymphoma Dermatologic History: Reports: Other (See Below) Other Dermatologic History: basal cell CA - Infectious Disease History Infectious Disease History: Reports: Chicken Pox, Measles, Shingles - Past Surgical History HEENT Surgical History: Reports: Adenoidectomy, Cataract Surgery, Tonsillectomy Cardiovascular Surgical History: Reports: None Respiratory Surgical History: Reports: None GI Surgical History: Reports: Appendectomy, Colonoscopy Other Male Surgeries/Procedures: repair of above Endocrine Surgical History: Reports: Thyroid Biopsy Other Endocrine Surgeries/Procedures: thyroid nodule Oncologic Surgical History: Reports: None Dermatological Surgical History: Reports: Skin Biopsy Social & Family History - Caffeine Use Caffeine Use: Reports: Coffee, Soda Review of Systems - Review of Systems Review Of Systems: See Below Constitutional: Reports: No Symptoms Eyes: Reports: No Symptoms Ears: Reports: No Symptoms Nose: Reports: No Symptoms Mouth/Throat: Reports: No Symptoms Respiratory: Reports: No Symptoms Cardiovascular: Reports: Irregular Heart Rate (Chronic atrial fibrillation) GI/Abdominal: Reports: No Symptoms Genitourinary: Reports: No Symptoms Musculoskeletal: Reports: Leg Pain (Left lateral lower leg pain, swelling, and bruising radiating into the foot.) Skin: Reports: Bruising (Lateral lower left leg above the ankle.) Neurological: Reports: No Symptoms Psychiatric: Reports: No Symptoms ED EXAM, GENERAL - Physical Exam Exam: See Below Exam Limited By: No Limitations General Appearance: Alert, Anxious, Moderate Distress Head: Atraumatic, Normocephalic Respiratory/Chest: No Respiratory Distress, Lungs Clear, Normal Breath Sounds Cardiovascular: Normal Peripheral Pulses, Irregularly Irregular Peripheral Pulses: 2+: Radial (L), Radial (R), Posterior Tibial (L), Posterior Tibial (R), Dorsalis Pedis (L), Dorsalis Pedis (R) Extremities: Pedal Edema (1-2+ bilateral pedal edema), Leg Pain (Significant te nderness with palpation over the lateral lower left leg with swelling and ecchymosis. This is approximately 3 cm above the lateral malleolus.) Neurological: Alert, Oriented, Normal Cognition, No Motor/Sensory Deficits Skin Exam: Warm, Dry, Ecchymosis (Bruising and swelling over the lateral left leg proximately 3 cm above the lateral malleolus.). No: Increased Warmth, Wound/Incision Course - Vital Signs Last Recorded V/S: Last Vital Signs Temp 36.6 C 07/12/20 04:06 Pulse 75 07/12/20 04:06 Resp 16 07/12/20 04:06 BP 176/86 H 07/12/20 04:06 Pulse Ox 96 07/12/20 04:06 - Orders/Labs/Meds Orders: Active Orders 24 hr Category Date Time Status Tibia Fibula Lt [CR] Stat Exams 07/12/20 03:49 Ordered VL Duplex Lwr Ext Veins Ltd Lt [US] Stat Exams 07/12/20 03:39 Ordered Labs: Laboratory Tests 07/12/20 07/12/20 07/12/20 Range/Units 03:50 03:50 03:50 WBC 5.2 (4.5-11.0) K/uL RBC 4.02 L (4.30-5.90) M/uL Hgb 12.6 (12.0-15.0) g/dL Hct 38.7 L (40.0-54.0) % MCV 96 (80-98) fL MCH 31 (27-31) pg MCHC 33 (32-36) % Plt Count 158 (150-400) K/uL Neut % (Auto) 71 H (36-66) % Lymph % (Auto) 10 L (24-44) % [place] % (Auto) 16 H (2-6) % Eos % (Auto) 3 (2-4) % Baso % (Auto) 0 (0-1) % PT 10.7 (9.5-12.0) sec INR 0.98 (0.80-1.20) APTT 24.2 L (27.0-36.0) sec Sodium 147 (140-148) mmol/L Potassium 3.7 (3.6-5.2) mmol/L Chloride 108 (100-108) mmol/L Carbon Dioxide 27 (21-32) mmol/L Anion Gap 11.6 (5.0-14.0) mmol/L BUN 22 H (7-18) mg/dL Creatinine 1.1 (0.8-1.3) mg/dL Est Cr Clr Drug Dosing 44.31 mL/min Estimated GFR (MDRD) > 60 (>60) Glucose 107 H (74-106) mg/dL Calcium 8.6 (8.5-10.1) mg/dL C-Reactive Protein 0.12 (0.0-0.3) mg/dL - Radiology Interpretation Free Text/Narrative:: Reviewed the x-rays of the left tibia and fibula. There is no evidence for acute osseous abnormalities. I reviewed the images of the ultrasound of the left lower extremity venous duplex. It appears that he has a complex mass in the area of the lower left lateral leg small to the lateral malleolus measuring approximately 4.5 x 4.5 cm. This is likely a traumatic hematoma in the area of the anterior tibial artery. There is no color-flow imaging in the mass to indicate any acute blood flow. There is no evidence for deep venous thrombosis in the entire leg. Final results will be available later today with Dr. Felix reading them. - Re-Assessments/Exams Free Text/Narrative Re-Assessment/Exam: 07/12/20 04:17 I reviewed the labs including a CBC, CRP, basic metabolic profile, PT, and PTT. These are all within normal limits. X-rays of the left tibia and fibula were unremarkable for any osseous abnormalities. We will proceed with an ultrasound of the left lower extremity to evaluate for deep venous thrombosis, however, I think it is more likely that he has inflamed varicosities involving either the lesser saphenous or greater saphenous vein. 07/12/20 05:11 the ultrasound of the left lower extremity venous duplex was negative for any deep venous thrombosis. The patient does have a complex mass, likely hematoma on the lateral lower left leg. The anterior tibial artery does go through the center of this, but there is no evidence of any blood flow in the collection of fluid and tissue. The area is quite tender to palpation and likely represents a traumatic hematoma. At this time, pain management is going to be the big issue. The patient may take Tylenol or ibuprofen for pain control. I will give him 4 tablets of [place] for breakthrough pain. He may elevate the area to reduce swelling. At this time he suitable for discharge home in satisfactory condition. Departure - Departure Time of Disposition: 05:15 Disposition: Home, Self-Care 01 Clinical Impression: Traumatic hematoma of left lower leg Qualifiers: Encounter type: initial encounter Qualified Code(s): S80.12XA - Contusion of left lower leg, initial encounter - Discharge Information Instructions: Pain Medicine Instructions, [id number] Referrals: PCP,None [Primary Care Provider] - Forms: ED Department Discharge Care Plan Goals: Ultrasound of your left leg revealed what appears to be a traumatic hematoma (collection of blood under the skin and in the soft tissues). There is no evidence on your ultrasound of any deep venous thrombosis (blood clots) in any of the veins. You may want to keep the leg elevated to reduce swelling and take Tylenol and ibuprofen for pain control. I will send you home with a very limited supply of hydrocodone for breakthrough pain should both of those medications not control your pain sufficiently. Follow-up with your primary care provider if not improving through the weekend. Sepsis Event Note (ED) - Focused Exam Vital Signs: Vital Signs Temp Pulse Resp BP Pulse Ox 07/12/20 04:06 36.6 C 75 16 176/86 H 96 07/12/20 03:48 36.6 C 88 16 191/91 H 96 - Problem List & Annotations (1) Traumatic hematoma of left lower leg SNOMED Code(s): 10293047699661768, [id number], [id number] Code(s): S80.12XA - CONTUSION OF LEFT LOWER LEG, INITIAL ENCOUNTER Status: Acute Priority: Medium Current Visit: Yes Qualifiers: Encounter type: initial encounter Qualified Code(s): S80.12XA - Contusion of left lower leg, initial encounter - Problem List Review Problem List Initiated/Reviewed/Updated: Yes - My Orders Last 24 Hours: My Active Orders 07/12/20 03:39 VL Duplex Lwr Ext Veins Ltd Lt [US] Stat 07/12/20 03:49 Tibia Fibula Lt [CR] Stat - Assessment/Plan Last 24 Hours: My Active Orders 07/12/20 03:39 VL Duplex Lwr Ext Veins Ltd Lt [US] Stat 07/12/20 03:49 Tibia Fibula Lt [CR] Stat
[2020-07-12 04:07] VITALS: BP 176/86; PULSE 75
--- NOTE | 2020-07-12 09:51 | CR ---
Tibia Fibula Lt CLINICAL HISTORY: Pain and swelling and bruising FINDINGS: No fracture or dislocation is identified. There is lower leg swelling. IMPRESSION: Generalized soft tissue swelling No fracture
--- NOTE | 2020-07-12 09:53 | US ---
VL Duplex Lwr Ext Veins Ltd Lt INDICATION: acute lower left leg swelling, bruising, pain FINDINGS: Ultrasound examination of the lower extremity using Doppler and compressive technique demonstrates that the common femoral, femoral, and popliteal veins are patent, and negative for thrombus. The calf veins were segmentally visualized and are negative where seen. Along the lateral ankle there is some complex masslike focus measuring 2 x 4 cm. No internal flow is identified. IMPRESSION: Negative for deep venous thrombosis. Complex masslike focus over the lateral ankle. This is most likely hematoma.
== END 2020-07-12 06:15 | disposition home or self-care (01) ==
LOC: JP.ED 03:31
DX: S80.12XA Contusion of left lower leg, initial encounter (principal); I10 Essential (primary) hypertension; J44.9 Chronic obstructive pulmonary disease, unspecified; R73.03 Prediabetes; I48.91 Unspecified atrial fibrillation; R60.0 Localized edema; Z79.82 Long term (current) use of aspirin; Z79.899 Other long term (current) drug therapy; X58.XXXA Exposure to other specified factors, initial encounter
CPT/HCPCS: 36415; 73590-26-LT; 73590-LT; 80048; 85025; 85610; 85730; 86140; 93971-26-LT; 93971-LT; 99285-25

== ENCOUNTER 2020-12-06 13:02 | Emergency (ER) | payer MEDICARE, BC ==
[2020-12-06 15:16] VITALS: BP 153/70; PULSE 63
--- NOTE | 2020-12-06 15:50 | EDM.PDOC ---
ED HPI GENERAL MEDICAL PROBLEM - General Chief Complaint: General Stated Complaint: NAUSEA,CHEST CONGESTION Time Seen by Provider: 12/06/20 15:42 Source of Information: Reports: Patient, Family, RN Notes Reviewed History Limitations: Reports: No Limitations - History of Present Illness INITIAL COMMENTS - FREE TEXT/NARRATIVE: 85-year-old gentleman presents emergency department day complaint of weakness, some nausea vomiting chest congestion he has been ill for about a week, he was vaccinated with medurna for COVID-19. No fevers no shortness of breath no chest pain no or GI symptomology - Related Data Allergies Allergy/AdvReac Type Severity Reaction Status Date / Time No Known Allergies Allergy Verified 12/06/20 15:17 Home Meds: Home Meds Acetaminophen [Mapap] 500 mg PO Q6H PRN 03/19/18 [History] Aspirin [Aspirin EC] 325 mg PO DAILY 03/19/18 [History] Metoprolol Tartrate 25 mg PO BID 03/19/18 [History] Nitroglycerin [Nitrostat] 0.4 mg SL ASDIRECTED PRN 03/19/18 [History] Budesonide/Formoterol Fumarate [Symbicort 80-4.5 Mcg Inhaler] 2 puff IH BID 11/09/18 [History] Doxazosin Mesylate [Cardura] 2 mg PO DAILY 11/09/18 [History] Omeprazole 40 cap PO DAILY 03/10/19 [History] Past Medical History HEENT History: Reports: Cataract, Impaired Vision, Macular Degeneration Cardiovascular History: Reports: Afib, High Cholesterol, Hypertension Respiratory History: Reports: COPD Gastrointestinal History: Reports: GERD Genitourinary History: Reports: BPH Other Genitourinary History: hx. hydro somthing Neurological History: Reports: Frequent Repetitive Habits (TICS), Other (See Below) Other Neuro History: mild cognitive impairment. 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 Dermatologic History: Reports: Other (See Below) Other Dermatologic History: basal cell CA - Infectious Disease History Infectious Disease History: Reports: Chicken Pox, Measles, Shingles - Past Surgical History HEENT Surgical History: Reports: Adenoidectomy, Cataract Surgery, Tonsillectomy Cardiovascular Surgical History: Reports: None Respiratory Surgical History: Reports: Lung Biopsies GI Surgical History: Reports: Appendectomy, Colonoscopy Other Male Surgeries/Procedures: repair of above Endocrine Surgical History: Reports: Thyroid Biopsy Other Endocrine Surgeries/Procedures: thyroid nodule Oncologic Surgical History: Reports: None Dermatological Surgical History: Reports: Skin Biopsy Social & Family History - Tobacco Use Tobacco Use Status *Q: Never Tobacco User - Caffeine Use Caffeine Use: Reports: Soda - Recreational Drug Use Recreational Drug Use: No ED ROS GENERAL - Review of Systems Review Of Systems: See Below Constitutional: Reports: Weakness. Denies: Fever, Chills HEENT: Reports: No Symptoms Respiratory: Reports: Other (Congestion) Cardiovascular: Reports: No Symptoms GI/Abdominal: Reports: Nausea, Vomiting : Reports: No Symptoms Musculoskeletal: Reports: No Symptoms Skin: Reports: No Symptoms ED EXAM, GENERAL - Physical Exam Exam: See Below Exam Limited By: No Limitations General Appearance: Alert, WD/WN, No Apparent Distress Respiratory/Chest: No Respiratory Distress, Lungs Clear, Normal Breath Sounds, No Accessory Muscle Use, Chest Non-Tender Cardiovascular: Regular Rate, Rhythm, No Murmur GI/Abdominal: Soft, Non-Tender Course - Vital Signs Last Recorded V/S: Last Vital Signs Temp 97.9 F 12/06/20 15:29 Pulse 63 12/06/20 15:29 Resp 16 12/06/20 15:29 BP 153/70 H 12/06/20 15:29 Pulse Ox 100 12/06/20 15:29 - Orders/Labs/Meds Orders: Active Orders 24 hr Category Date Time Status Chest 2V [CR] Urgent Exams 12/06/20 15:48 Stop Req Labs: Laboratory Tests 12/06/20 12/06/20 12/06/20 Range/Units 15:58 15:58 15:58 WBC 3.9 L (4.5-11.0) K/uL RBC 3.87 L (4.30-5.90) M/uL Hgb 12.3 (12.0-15.0) g/dL Hct 37.4 L (40.0-54.0) % MCV 97 (80-98) fL MCH 32 H (27-31) pg MCHC 33 (32-36) % Plt Count 104 L (150-400) K/uL Neut % (Auto) 59.9 (36-66) % Lymph % (Auto) 9.7 L (24-44) % Chester % (Auto) 29.9 H (2-6) % Eos % (Auto) 0.0 L (2-4) % Baso % (Auto) 0.5 (0-1) % Sodium 139 L (140-148) mmol/L Potassium 3.7 (3.6-5.2) mmol/L Chloride 102 (100-108) mmol/L Carbon Dioxide 27 (21-32) mmol/L Anion Gap 13.7 (5.0-14.0) mmol/L BUN 23 H (7-18) mg/dL Creatinine 1.4 H (0.8-1.3) mg/dL Est Cr Clr Drug Dosing 34.81 mL/min Estimated GFR (MDRD) 48 L (>60) Glucose 161 H (74-106) mg/dL Lactic Acid 2.8 H (0.4-2.0) mmol/L Calcium 8.1 L (8.5-10.1) mg/dL Total Bilirubin 0.3 (0.2-1.0) mg/dL AST 22 (15-37) U/L ALT 22 (12-78) U/L Alkaline Phosphatase 79 (46-116) U/L Troponin I < 0.017 (0.000-0.056) ng/mL Total Protein 5.9 L (6.4-8.2) g/dL Albumin 2.9 L (3.4-5.0) g/dL Globulin 3.0 (2.3-3.5) g/dL Albumin/Globulin Ratio 1.0 L (1.2-2.2) SARS CoV-2 RNA Rapid SAMUEL 12/06/20 Range/Units 16:44 WBC (4.5-11.0) K/uL RBC (4.30-5.90) M/uL Hgb (12.0-15.0) g/dL Hct (40.0-54.0) % MCV (80-98) fL MCH (27-31) pg MCHC (32-36) % Plt Count (150-400) K/uL Neut % (Auto) (36-66) % Lymph % (Auto) (24-44) % Chester % (Auto) (2-6) % Eos % (Auto) (2-4) % Baso % (Auto) (0-1) % Sodium (140-148) mmol/L Potassium (3.6-5.2) mmol/L Chloride (100-108) mmol/L Carbon Dioxide (21-32) mmol/L Anion Gap (5.0-14.0) mmol/L BUN (7-18) mg/dL Creatinine (0.8-1.3) mg/dL Est Cr Clr Drug Dosing mL/min Estimated GFR (MDRD) (>60) Glucose (74-106) mg/dL Lactic Acid (0.4-2.0) mmol/L Calcium (8.5-10.1) mg/dL Total Bilirubin (0.2-1.0) mg/dL AST (15-37) U/L ALT (12-78) U/L Alkaline Phosphatase (46-116) U/L Troponin I (0.000-0.056) ng/mL Total Protein (6.4-8.2) g/dL Albumin (3.4-5.0) g/dL Globulin (2.3-3.5) g/dL Albumin/Globulin Ratio (1.2-2.2) SARS CoV-2 RNA Rapid SAMUEL Positive H Departure - Departure Time of Disposition: 17:08 Disposition: Home, Self-Care 01 Condition: Fair Clinical Impression: COVID-19 - Discharge Information Instructions: COVID-19 Frequently Asked Questions, COVID-19: How to Protect Yourself and Others - [facility] Referrals: PCP,None [Primary Care Provider] - Forms: ED Department Discharge Additional Instructions: [facility] will call you for an appointment time for the monoclonal antibody therapy which should be tomorrow, call return to the emergency department worsening of symptoms Sepsis Event Note (ED) - Evaluation Sepsis Screening Result: No Definite Risk - Focused Exam Vital Signs: Vital Signs Temp Pulse Resp BP Pulse Ox 12/06/20 15:29 97.9 F 63 16 153/70 H 100 12/06/20 15:15 97.9 F 63 16 153/70 H 100 - My Orders Last 24 Hours: My Active Orders 12/06/20 15:48 Chest 2V [CR] Urgent - Assessment/Plan Last 24 Hours: My Active Orders 12/06/20 15:48 Chest 2V [CR] Urgent Plan: Assessment Acuity = acute Site and laterality = viral syndrome Etiology = COVID-19 Manifestations = none Location of injury = Home Lab values = WBC low at 3.9 consistent leukopenia creatinine elevated 1.4 consi stent with acute renal failure stage T3a lactic acid slightly elevated 2.8 consistent with lactic acidosis troponin is negative COVID-19 positive Plan This gentleman is a candidate for monoclonal antibody therapy he is 7 days out, set him up orders have been provided little you to be done today or tomorrow This note was dictated using [employer] voice recognition software please call with any questions on syntax or grammar.
== END 2020-12-06 17:49 | disposition home or self-care (01) ==
LOC: JP.ED 13:02
DX: U07.1 COVID-19 (principal); K21.9 Gastro-esophageal reflux disease without esophagitis; I10 Essential (primary) hypertension; J44.9 Chronic obstructive pulmonary disease, unspecified; Z20.822 Contact with and (suspected) exposure to COVID-19; Z79.82 Long term (current) use of aspirin; Z79.899 Other long term (current) drug therapy
CPT/HCPCS: 36415; 80053; 83605; 84484; 85025; 99284; U0002

== ENCOUNTER 2022-01-06 18:37 | Inpatient (IN) | payer MEDICARE, BC ==
[2022-01-06] MEDS ORDERED: oxyCODONE 5 MG Tab PO ONE (19:49)
[2022-01-06] MEDS ORDERED: Sodium Chloride 0.9% 1,000 ML IV ONE (21:30)
[2022-01-06] MEDS ORDERED: Metoprolol Tartrate 25 MG Tab PO ONE (22:15)
[2022-01-06] MEDS ORDERED: Donepezil 10 MG Tab PO ONE (22:15)
[2022-01-06] MEDS ORDERED: Melatonin 3 MG Tab PO ONE (22:15)
[2022-01-07] MEDS ORDERED: Metoprolol Tartrate 25 MG Tab PO ONE ×2 (08:22→21:30)
[2022-01-07] MEDS ORDERED: Cholecalciferol (Vitamin D3) 25 MCG Tab PO ONE (08:22)
[2022-01-07] MEDS ORDERED: Cyanocobalamin (Vitamin B12) 1,000 MCG Tab PO ONE (08:22)
[2022-01-07] MEDS ORDERED: Pantoprazole 40 MG Tab.CR PO ONE (08:22)
[2022-01-07] MEDS ORDERED: oxyCODONE 5 MG Tab PO ONE ×3 (10:16→23:11)
[2022-01-07] MEDS ORDERED: Sodium Chloride 0.9% 1,000 ML IV ONE (10:30)
[2022-01-07] MEDS ORDERED: Propofol 200 MG/20 ML SDV ONE (16:20)
[2022-01-07] MEDS ORDERED: fentaNYL 100 MCG/2 ML SDV ONE (16:20)
[2022-01-07] MEDS ORDERED: Midazolam 1 MG/ML 2 ML SDV ONE (16:20)
[2022-01-07] MEDS ORDERED: ceFAZolin 2 GM in Sodium Chloride 0.9% 50 ML IV ONE (16:30)
[2022-01-07] MEDS ORDERED: Donepezil 10 MG Tab PO ONE (21:30)
[2022-01-07] MEDS ORDERED: tiZANidine 2 MG Tab PO ONE (23:11)
[2022-01-08] MEDS ORDERED: Sodium Chloride 0.9% 1,000 ML IV ONE (03:30)
[2022-01-08] MEDS ORDERED: oxyCODONE 5 MG Tab PO ONE (08:15)
[2022-01-08] MEDS ORDERED: Bisacodyl 10 MG Supp ONE (09:00)
[2022-01-08] MEDS ORDERED: Donepezil 10 MG Tab ONE (09:00)
[2022-01-08] MEDS ORDERED: Enoxaparin 30 MG/0.3 ML Syringe ONE (09:00)
[2022-01-08] MEDS ORDERED: Ondansetron 4 MG/2 ML SDV ONE (09:00)
[2022-01-08] MEDS ORDERED: Pantoprazole 40 MG Tab.CR ONE (09:00)
[2022-01-08] MEDS ORDERED: Doxazosin 4 MG Tab ONE (09:00)
[2022-01-08] MEDS ORDERED: Metoprolol Tartrate 25 MG Tab ONE ×2 (09:00)
[2022-01-09] MEDS ORDERED: Pantoprazole 40 MG Tab.CR ONE (09:00)
[2022-01-09] MEDS ORDERED: Doxazosin 4 MG Tab ONE (09:00)
[2022-01-09] MEDS ORDERED: Enoxaparin 30 MG/0.3 ML Syringe ONE (09:00)
[2022-01-09] MEDS ORDERED: Metoprolol Tartrate 25 MG Tab ONE ×2 (09:00)
[2022-01-09] MEDS ORDERED: Donepezil 10 MG Tab ONE (09:00)
[2022-01-09] MEDS ORDERED: Magnesium Hydroxide 400 MG/5 ML Susp 30 ML Cup PO ONE (19:20)
[2022-01-10] MEDS ORDERED: Pantoprazole 40 MG Tab.CR ONE (09:00)
[2022-01-10] MEDS ORDERED: Enoxaparin 30 MG/0.3 ML Syringe ONE (09:00)
[2022-01-10] MEDS ORDERED: Doxazosin 4 MG Tab ONE (09:00)
[2022-01-10] MEDS ORDERED: Metoprolol Tartrate 25 MG Tab ONE (09:00)
[2022-02-13 11:34] LABS: ESTIMATED GFR 65 mL/min (>60)
[2022-02-13 14:08] LABS: ESTIMATED GFR 49 mL/min (>60)
== END 2022-01-10 13:00 | DRG 481 ==
LOC: JP.SDS 18:37 → JP.ZCENSUS 18:38
PROVIDERS: ADMIT Internal Medicine; ATTEND Internal Medicine
PROC: 0SHB34Z Insertion of Internal Fixation Device into Left Hip Joint, Percutaneous Approach (ICD-10-PCS; principal; 2022-01-07)
DX: S72.002A Fracture of unspecified part of neck of left femur, initial encounter for closed fracture (principal); N13.8 Other obstructive and reflux uropathy; W19.XXXA Unspecified fall, initial encounter; Y92.009 Unspecified place in unspecified non-institutional (private) residence as the place of occurrence of the external cause; I48.0 Paroxysmal atrial fibrillation; J44.9 Chronic obstructive pulmonary disease, unspecified; N40.1 Benign prostatic hyperplasia with lower urinary tract symptoms; I10 Essential (primary) hypertension; G31.84 Mild cognitive impairment of uncertain or unknown etiology; Z79.82 Long term (current) use of aspirin; Z79.899 Other long term (current) drug therapy; Z87.891 Personal history of nicotine dependence; Z85.828 Personal history of other malignant neoplasm of skin; Z85.72 Personal history of non-Hodgkin lymphomas
CPT/HCPCS: 36415; 76000; 80048; 85018; 85027; 93005; 97110-GP; 97162-GP; 97165-GO; 97530-GP; 97537-GP; A9270-GY; C1713; C1769; J0690; J1650; J2250; J2405; J2704; J3010; J3490; J7030; U0002

== ENCOUNTER 2022-08-08 15:03 | Emergency (ER) | payer MEDICARE, BC ==
[2022-08-08 16:12] LABS: BASOPHILS ABSOLUTE AUTO 0.03 K/uL (0.00-0.10); BASOPHILS PERCENT AUTO 0.7 % (0.1-1.3); EOSINOPHILS ABSOLUTE AUTO 0.06 K/uL (0.00-0.40); EOSINOPHILS PERCENT AUTO 1.3 % (0.0-5.4); HEMATOCRIT 38.4 % (38.4-49.7); HEMOGLOBIN 12.3 g/dL (12.9-16.9); IMMATURE GRAN PERCENT AUTO 0.2 % (0.0-0.7); LYMPHOCYTES ABSOLUTE AUTO 0.53 K/uL (0.8-3.3); LYMPHOCYTES PERCENT AUTO 11.8 % (11.4-47.7); MEAN CORPUSCULAR HEMOGLOBIN 32.2 pg (31.6-35.5); MEAN CORPUSCULAR VOLUME 100.5 fL (81.4-99.0); MONOCYTES ABSOLUTE AUTO 0.73 K/uL (0.20-0.90); MONOCYTES PERCENT AUTO 16.2 % (3.3-12.6); NEUTROPHILS ABSOLUTE AUTO 3.14 K/uL (1.0-7.6); NEUTROPHILS PERCENT AUTO 69.8 % (40.0-78.1); PLATELET COUNT,PLT 158 K/uL (130-375); RED BLOOD CELL COUNT 3.82 M/uL (4.14-5.76); WHITE BLOOD CELL COUNT,WBC 4.5 K/uL (3.2-11.0)
[2022-08-08 16:14] LABS: IMMATURE GRAN ABSOLUTE AUTO 0.01 K/uL (0.00-0.23)
[2022-08-08] MEDS ORDERED: Sodium Chloride 0.9% 500 ML IV SCH (16:15)
[2022-08-08 16:27] LABS: CREATININE 1.4 mg/dL (0.8-1.3); EST CRCL DRUG DOSING (CG) 33.55 mL/min; POTASSIUM,K 3.8 mmol/L (3.6-5.2)
[2022-08-08 16:29] LABS: ANION GAP 7.8 mmol/L (5.0-14.0)
[2022-08-08 17:36] LABS: APPEARANCE,URINE CLEAR (CLEAR); BILIRUBIN,URINE NEGATIVE (NEGATIVE); COLOR,URINE YELLOW (YELLOW); GLUCOSE,URINE NEGATIVE (NEGATIVE); KETONES,URINE NEGATIVE (NEGATIVE); LEUKOCYTE ESTERASE,URINE NEGATIVE (NEGATIVE); NITRITE,URINE NEGATIVE (NEGATIVE); OCCULT BLOOD,URINE NEGATIVE (NEGATIVE); PH,URINE 5.5 (5.0-8.0); PROTEIN,URINE NEGATIVE (NEGATIVE)
[2022-08-08 17:38] VITALS: BP 175/86; PULSE 82
[2022-08-08 17:42] LABS: AMORPHOUS SEDIMENT,URINE NOT SEEN; BACTERIA,URINE FEW; EPITHELIAL CELLS,URINE RARE; MUCUS,URINE FEW; RBC,URINE 0-5 (0-5); WBC,URINE 0-5 (0-5)
== END 2022-08-08 18:20 | disposition home or self-care (01) ==
LOC: JP.ED 15:03
DX: E86.0 Dehydration (principal); I48.91 Unspecified atrial fibrillation; I10 Essential (primary) hypertension; J44.9 Chronic obstructive pulmonary disease, unspecified; K21.9 Gastro-esophageal reflux disease without esophagitis; Z79.82 Long term (current) use of aspirin; Z79.899 Other long term (current) drug therapy; Z86.16 Personal history of COVID-19; Z72.0 Tobacco use
CPT/HCPCS: 36415; 70450; 80048; 81001; 85025; 96360; 99283; 99285; J7030

== ENCOUNTER 2022-12-27 00:02 | Emergency (ER) | payer MEDICARE, BC ==
[2022-12-27] MEDS ORDERED: Sodium Chloride 0.9% 10 ML Syringe FLUSH PRN (01:31)
[2022-12-27 01:33] LABS: APPEARANCE,URINE CLEAR (CLEAR); BILIRUBIN,URINE NEGATIVE (NEGATIVE); COLOR,URINE YELLOW (YELLOW); GLUCOSE,URINE NEGATIVE (NEGATIVE); KETONES,URINE TRACE mg/dL (NEGATIVE); LEUKOCYTE ESTERASE,URINE NEGATIVE (NEGATIVE); NITRITE,URINE NEGATIVE (NEGATIVE); OCCULT BLOOD,URINE NEGATIVE (NEGATIVE); PROTEIN,URINE NEGATIVE (NEGATIVE); UROBILINOGEN,URINE 0.2 EU/dL (0.2-1.0)
[2022-12-27 01:37] VITALS: BP 180/94; PULSE 104
[2022-12-27 01:45] LABS: AMORPHOUS SEDIMENT,URINE NOT SEEN; BACTERIA,URINE RARE; EPITHELIAL CELLS,URINE FEW; MUCUS,URINE NOT SEEN; RBC,URINE 0-5 (0-5); WBC,URINE 0-5 (0-5)
[2022-12-27] MEDS ORDERED: Sodium Chloride 0.9% 1,000 ML IV SCH (01:45)
[2022-12-27 02:04] LABS: BASOPHILS PERCENT AUTO 0.2 % (0.1-1.3); EOSINOPHILS PERCENT AUTO 0.2 % (0.0-5.4); HEMATOCRIT 32.6 % (38.4-49.7); IMMATURE GRAN PERCENT AUTO 0.3 % (0.0-0.7); LYMPHOCYTES ABSOLUTE AUTO 0.15 K/uL (0.8-3.3); LYMPHOCYTES PERCENT AUTO 2.4 % (11.4-47.7); MEAN CORPUSCULAR HEMOGLOBIN 32.6 pg (31.6-35.5); MEAN CORPUSCULAR HGB CONC 33.7 g/dL (31.6-35.5); MEAN CORPUSCULAR VOLUME 96.7 fL (81.4-99.0); MONOCYTES ABSOLUTE AUTO 0.48 K/uL (0.20-0.90); MONOCYTES PERCENT AUTO 7.6 % (3.3-12.6); NEUTROPHILS ABSOLUTE AUTO 5.61 K/uL (1.0-7.6); NEUTROPHILS PERCENT AUTO 89.3 % (40.0-78.1); PLATELET COUNT,PLT 149 K/uL (130-375); RED BLOOD CELL COUNT 3.37 M/uL (4.14-5.76); WHITE BLOOD CELL COUNT,WBC 6.3 K/uL (3.2-11.0)
[2022-12-27 02:13] LABS: BASOPHILS ABSOLUTE AUTO 0.01 K/uL (0.00-0.10); EOSINOPHILS ABSOLUTE AUTO 0.01 K/uL (0.00-0.40); IMMATURE GRAN ABSOLUTE AUTO 0.02 K/uL (0.00-0.23)
[2022-12-27 02:25] LABS: ALANINE AMINOTRANSFERASE,ALT 18 U/L (12-78); ALBUMIN 2.9 g/dL (3.4-5.0); ALKALINE PHOSPHATASE 80 U/L (46-116); ASPARTATE AMNIOTRANSFERASE,AST 15 U/L (15-37); BILIRUBIN TOTAL 0.3 mg/dL (0.2-1.0); BLOOD UREA NITROGEN,BUN 21 mg/dL (7-18); CALCIUM 7.8 mg/dL (8.5-10.1); CARBON DIOXIDE,CO2 29 mmol/L (21-32); CHLORIDE,CL 104 mmol/L (100-108); CREATININE 1.2 mg/dL (0.8-1.3); EST CRCL DRUG DOSING (CG) 40.55 mL/min; ESTIMATED GFR 59 mL/min (>60); GLUCOSE RANDOM 154 mg/dL (74-106); POTASSIUM,K 3.8 mmol/L (3.6-5.2); PROTEIN TOTAL,TP 5.8 g/dL (6.4-8.2); SODIUM,NA 138 mmol/L (140-148)
[2022-12-27 02:49] LABS: ANION GAP 8.8 mmol/L (5.0-14.0)
== END 2022-12-27 03:40 ==
LOC: JP.ED 00:02
DX: G31.83 Neurocognitive disorder with Lewy bodies (principal); E86.0 Dehydration; K21.9 Gastro-esophageal reflux disease without esophagitis; J44.9 Chronic obstructive pulmonary disease, unspecified; I10 Essential (primary) hypertension; Z79.899 Other long term (current) drug therapy; Z86.16 Personal history of COVID-19; Z79.82 Long term (current) use of aspirin
CPT/HCPCS: 36415; 80053; 81001; 85025; 96360; 99285; J3490; J7030

== ENCOUNTER 2023-01-10 11:55 | Emergency (ER) | payer MEDICARE, BC ==
[2023-01-10 12:08] VITALS: BP 179/88; PULSE 116
[2023-01-10 12:47] LABS: BASOPHILS PERCENT AUTO 0.2 % (0.1-1.3); EOSINOPHILS PERCENT AUTO 0.4 % (0.0-5.4); HEMATOCRIT 35.6 % (38.4-49.7); IMMATURE GRAN PERCENT AUTO 0.2 % (0.0-0.7); LYMPHOCYTES ABSOLUTE AUTO 0.21 K/uL (0.8-3.3); MEAN CORPUSCULAR HEMOGLOBIN 32.5 pg (31.6-35.5); MEAN CORPUSCULAR HGB CONC 33.7 g/dL (31.6-35.5); MEAN CORPUSCULAR VOLUME 96.5 fL (81.4-99.0); MONOCYTES ABSOLUTE AUTO 0.66 K/uL (0.20-0.90); MONOCYTES PERCENT AUTO 12.5 % (3.3-12.6); NEUTROPHILS ABSOLUTE AUTO 4.36 K/uL (1.0-7.6); NEUTROPHILS PERCENT AUTO 82.7 % (40.0-78.1); PLATELET COUNT,PLT 175 K/uL (130-375); RED BLOOD CELL COUNT 3.69 M/uL (4.14-5.76); WHITE BLOOD CELL COUNT,WBC 5.3 K/uL (3.2-11.0)
[2023-01-10 12:50] LABS: BASOPHILS ABSOLUTE AUTO 0.01 K/uL (0.00-0.10); EOSINOPHILS ABSOLUTE AUTO 0.02 K/uL (0.00-0.40); IMMATURE GRAN ABSOLUTE AUTO 0.01 K/uL (0.00-0.23)
[2023-01-10 13:02] LABS: ANION GAP 9.1 mmol/L (5.0-14.0); BLOOD UREA NITROGEN,BUN 18 mg/dL (7-18); CALCIUM 8.4 mg/dL (8.5-10.1); CARBON DIOXIDE,CO2 30 mmol/L (21-32); CHLORIDE,CL 104 mmol/L (100-108); CREATININE 1.1 mg/dL (0.8-1.3); ESTIMATED GFR 65 mL/min (>60); GLUCOSE RANDOM 116 mg/dL (74-106); POTASSIUM,K 3.6 mmol/L (3.6-5.2); SODIUM,NA 143 mmol/L (140-148)
[2023-01-10 13:51] LABS: APPEARANCE,URINE CLEAR (CLEAR); BILIRUBIN,URINE NEGATIVE (NEGATIVE); COLOR,URINE YELLOW (YELLOW); GLUCOSE,URINE NEGATIVE (NEGATIVE); KETONES,URINE NEGATIVE (NEGATIVE); LEUKOCYTE ESTERASE,URINE NEGATIVE (NEGATIVE); NITRITE,URINE NEGATIVE (NEGATIVE); OCCULT BLOOD,URINE NEGATIVE (NEGATIVE); PROTEIN,URINE NEGATIVE (NEGATIVE); UROBILINOGEN,URINE 0.2 EU/dL (0.2-1.0)
[2023-01-10 13:58] LABS: BACTERIA,URINE RARE; EPITHELIAL CELLS,URINE NOT SEEN; RBC,URINE 0-5 (0-5); WBC,URINE 0-5 (0-5)
[2023-01-10 13:59] LABS: AMORPHOUS SEDIMENT,URINE NOT SEEN; MUCUS,URINE NOT SEEN
== END 2023-01-10 14:42 | disposition home or self-care (01) ==
LOC: JP.ED 11:55
DX: F03.90 Unspecified dementia, unspecified severity, without behavioral disturbance, psychotic disturbance, mood disturbance, and anxiety (principal); G31.83 Neurocognitive disorder with Lewy bodies; K21.9 Gastro-esophageal reflux disease without esophagitis; J44.9 Chronic obstructive pulmonary disease, unspecified; I10 Essential (primary) hypertension; Z86.16 Personal history of COVID-19; Z79.82 Long term (current) use of aspirin; Z79.899 Other long term (current) drug therapy
CPT/HCPCS: 36415; 71045; 71045-26; 80048; 81001; 85025; 99285

== ENCOUNTER 2023-02-17 19:38 | Emergency (ER) | payer MEDICARE, BC ==
[2023-02-17 21:03] LABS: BASOPHILS ABSOLUTE AUTO 0.01 K/uL (0.00-0.10); BASOPHILS PERCENT AUTO 0.2 % (0.1-1.3); EOSINOPHILS ABSOLUTE AUTO 0.01 K/uL (0.00-0.40); EOSINOPHILS PERCENT AUTO 0.2 % (0.0-5.4); HEMATOCRIT 32.3 % (38.4-49.7); HEMOGLOBIN 10.9 g/dL (12.9-16.9); IMMATURE GRAN ABSOLUTE AUTO 0.03 K/uL (0.00-0.23); IMMATURE GRAN PERCENT AUTO 0.5 % (0.0-0.7); LYMPHOCYTES PERCENT AUTO 4.6 % (11.4-47.7); MEAN CORPUSCULAR HGB CONC 33.7 g/dL (31.6-35.5); MEAN CORPUSCULAR VOLUME 97.9 fL (81.4-99.0); MONOCYTES ABSOLUTE AUTO 0.72 K/uL (0.20-0.90); NEUTROPHILS ABSOLUTE AUTO 5.45 K/uL (1.0-7.6); NEUTROPHILS PERCENT AUTO 83.5 % (40.0-78.1); PLATELET COUNT,PLT 152 K/uL (130-375); WHITE BLOOD CELL COUNT,WBC 6.5 K/uL (3.2-11.0)
[2023-02-17 21:23] LABS: A/G RATIO 0.8 (1.2-2.2); ALANINE AMINOTRANSFERASE,ALT 11 U/L (12-78); ALBUMIN 2.6 g/dL (3.4-5.0); ALKALINE PHOSPHATASE 77 U/L (46-116); AMYLASE 51 U/L (25-115); ASPARTATE AMNIOTRANSFERASE,AST 23 U/L (15-37); BILIRUBIN TOTAL 0.3 mg/dL (0.2-1.0); BLOOD UREA NITROGEN,BUN 24 mg/dL (7-18); CALCIUM 7.5 mg/dL (8.5-10.1); CARBON DIOXIDE,CO2 28 mmol/L (21-32); CHLORIDE,CL 104 mmol/L (100-108); CREATININE 1.2 mg/dL (0.8-1.3); EST CRCL DRUG DOSING (CG) 39.58 mL/min; ESTIMATED GFR 58 mL/min (>60); GLUCOSE RANDOM 112 mg/dL (74-106); PROTEIN TOTAL,TP 5.9 g/dL (6.4-8.2); SODIUM,NA 139 mmol/L (140-148)
[2023-02-17] MEDS ORDERED: Sodium Chloride 0.9% 500 ML IV SCH (21:30)
[2023-02-17 21:37] LABS: INFLUENZA A NAA NEGATIVE (NEGATIVE); INFLUENZA B NAA NEGATIVE (NEGATIVE); RESPIRATORY SYNCYTIAL VIR NAA NEGATIVE (NEGATIVE)
[2023-02-17 21:38] LABS: CORONAVIRUS COVID-19 NAA POSITIVE (NEGATIVE)
[2023-02-17 22:23] VITALS: BP 124/53; PULSE 74
[2023-02-17 23:18] LABS: APPEARANCE,URINE SLIGHTLY CLOUDY (CLEAR); BILIRUBIN,URINE SMALL (NEGATIVE); COLOR,URINE YELLOW (YELLOW); GLUCOSE,URINE NEGATIVE (NEGATIVE); KETONES,URINE TRACE mg/dL (NEGATIVE); LEUKOCYTE ESTERASE,URINE NEGATIVE (NEGATIVE); NITRITE,URINE NEGATIVE (NEGATIVE); OCCULT BLOOD,URINE NEGATIVE (NEGATIVE); PH,URINE 5.5 (5.0-8.0); PROTEIN,URINE 30 mg/dL (NEGATIVE); UROBILINOGEN,URINE 0.2 EU/dL (0.2-1.0)
[2023-02-17 23:25] LABS: AMORPHOUS SEDIMENT,URINE NOT SEEN; BACTERIA,URINE FEW; EPITHELIAL CELLS,URINE MODERATE; MUCUS,URINE MODERATE; RBC,URINE 0-5 (0-5); WBC,URINE 0-5 (0-5)
== END 2023-02-17 23:17 ==
LOC: JP.ED 19:38
DX: U07.1 COVID-19 (principal); K30 Functional dyspepsia; I10 Essential (primary) hypertension; J44.9 Chronic obstructive pulmonary disease, unspecified; K21.9 Gastro-esophageal reflux disease without esophagitis; Z87.891 Personal history of nicotine dependence; Z79.82 Long term (current) use of aspirin; Z79.899 Other long term (current) drug therapy
CPT/HCPCS: 0241U; 36415; 74176; 80053; 81001; 82150; 85025; 96360; 96361; 99284; 99285-25; J7030

== ENCOUNTER 2023-04-30 22:00 | Emergency (ER) | payer MEDICARE, BC ==
[2023-04-30 23:45] VITALS: BP 158/74; PULSE 96
== END 2023-05-01 00:26 | disposition home or self-care (01) ==
LOC: JP.ED 22:00 → EEVIPCON 22:00 → JP.ED 05-01 00:26
DX: S61.412A Laceration without foreign body of left hand, initial encounter (principal); S00.83XA Contusion of other part of head, initial encounter; I10 Essential (primary) hypertension; J44.9 Chronic obstructive pulmonary disease, unspecified; K21.9 Gastro-esophageal reflux disease without esophagitis; Z79.899 Other long term (current) drug therapy; Z79.82 Long term (current) use of aspirin; Z86.16 Personal history of COVID-19; W22.8XXA Striking against or struck by other objects, initial encounter
CPT/HCPCS: 70450; 72125; 76377; 99283

== ENCOUNTER 2023-07-18 19:32 | Emergency (ER) | payer MEDICARE, BC ==
[2023-07-18 19:51] VITALS: BP 167/79; PULSE 78
[2023-07-18] MEDS: Lidocaine 1% with EPINEPHrine 1:100,000 20 ML MDV INJECT ONE (20:28)
[2023-07-18] MEDS: Bacitracin Oint 1 GM U/D Packet TOP ONE (20:31)
[2023-07-18] MEDS: Bacitracin Oint 1 GM U/D Packet ONE (21:00)
[2023-07-18] MEDS: Sulfamethoxazole/Trimethoprim 800-160 MG Tab PO ONE ×2 (21:01→21:03)
[2023-07-19] MEDS ORDERED: Sulfamethoxazole/Trimethoprim 800-160 MG Tab PO SCH
== END 2023-07-18 21:15 | disposition home or self-care (01) ==
LOC: JP.ED 19:32
DX: S68.624A Partial traumatic transphalangeal amputation of right ring finger, initial encounter (principal); I10 Essential (primary) hypertension; K21.9 Gastro-esophageal reflux disease without esophagitis; M19.90 Unspecified osteoarthritis, unspecified site; Z79.82 Long term (current) use of aspirin; Z79.899 Other long term (current) drug therapy; Z86.16 Personal history of COVID-19; Z90.49 Acquired absence of other specified parts of digestive tract; X58.XXXA Exposure to other specified factors, initial encounter
CPT/HCPCS: 12002; 99283; 99284; A9270-GY